=== PATIENT | male | born 1955 | race African-American/Black ===

== ENCOUNTER 2017-07-18 07:35 | Observation (INO) | payer BC ==
[2017-07-18 08:22] LABS: #Basophils 0.1 thou/uL (0.0-0.2); #Eosinphils 0.2 thou/uL (0.0-0.7); #Lymphocytes 2.3 thou/uL (1.20-3.40); #Monocytes 0.4 thou/uL (0.11-0.59); #Neutrophils 3.2 thou/uL (1.40-6.50); %Eosinophils 3.1 % (0.0-10.0); %Lymphocytes 36.5 % (21.0-51.0); %Monocytes 7.2 % (0.0-10.0); Hematocrit 48.1 % (42.0-52.0); Mean Platelet Volume 7.4 fL (7.4-10.4); Red Blood Cell (RBC) Count 4.95 mill/uL (4.70-6.10); White Blood Cell (WBC) Count 6.2 thou/uL (4.8-10.8)
--- NOTE | 2017-07-18 08:41 | RAD ---
CHEST TWO VIEW: History: Shortness of breath. Comparison: Chest one view, 01-03-16 FINDINGS: There is a nodular density in the left lung apex. Remainder of the lungs are clear. No pneumothorax or effusion. Mild spondylosis of the thoracic spine. IMPRESSION: Nodular density left lung apex. Follow up radiograph in six months or CT recommended. POS: [facility]
[2017-07-18 08:44] LABS: Anion Gap 12 mmol/L (10-20); BUN (Urea Nitrogen) 13 mg/dL (8.4-25.7); Calc. Creatinine Clearance 0 mL/min (70-130); Calcium 9.3 mg/dL (7.8-10.44); Carbon Dioxide 29 mmol/L (23-31); Chloride 100 mmol/L (98-107); Estimated GFR-MDRD Greater than 90
[2017-07-18 08:51] LABS: Troponin I Less than 0.010 ng/mL (< 0.028)
[2017-07-18] MEDS ORDERED: Ondansetron ODT 4 MG TAB SL PRN (12:25)
[2017-07-18] MEDS ORDERED: Ondansetron HCl/PF 4 MG/2 ML Vial IVP PRN ×2 (12:25→12:28)
[2017-07-18] MEDS ORDERED: Acetaminophen 325 MG TAB PO PRN ×2 (12:25→12:28)
--- NOTE | 2017-07-18 12:27 | HP ---
PRIMARY CARE PHYSICIAN: Dr. Bladimir Hughes. REASON FOR ADMISSION: Acute dyspnea with diaphoresis. HISTORY OF PRESENT ILLNESS: A 62-year-old -[place] male with a history of morbid obesity, d iabetes type 2, hypertension and dyslipidemia, who came to the emergency room for evaluation of acut e onset of dyspnea and diaphoresis. The patient reports that this morning around 6:30 when he was a pplying prescription medication to his , at that time, patient felt acute onset of shortness of breath with diaphoresis. The patient was rubbing cream and after a while, he was feeling that he wa s not able to take a deep breath. He has to struggle to take a deep breath and he felt diaphoresis. He did not have any chest pain. He did not pass out. He did not have any lower extremity edema o r calf tenderness. He did not have any cough. His blood sugar was 186 and that is why he was mis rned about and decided to come to the emergency room for evaluation. This type of thing never happe aniceto to him before and he has never smoked in his life. He was never told that he has any asthma. W hen he presented to emergency room, he was saturating normal. He was feeling normal, but he was con cerned about diaphoresis with tightness in his chest. He also felt wheezing and heard himself wheez ing when this happened. This entire episode lasted for about a few minutes and subsequently it subs ided by itself. Currently, when I saw this patient in the emergency room, he is feeling normal. REVIEW OF SYSTEMS: Please see my HPI for pertinent positives and negatives. All other review of sy stems reviewed and negative except as mentioned in the HPI. Constitutional: Weight loss or gain, ability to conduct usual activities. Skin: Rash, itching. Eyes: Double vision, pain. ENT/Mouth: Nose bleeding, neck stiffness, pain, tenderness. Cardiovascular: Palpitations, dyspnea on exertion, orthopnea. Respiratory: Shortness of breath, wheezing, cough, hemoptysis, fever or night sweats. Gastrointestinal: Poor appetite, abdominal pain, heartburn, nausea, vomiting, constipation, or diar yakelin. Genitourinary: Urgency, frequency, dysuria, nocturia. Musculoskeletal: Pain, swelling. Neurologic/Psychiatric: Anxiety, depression. Allergy/Immunologic: Skin rash, bleeding tendency. PAST MEDICAL HISTORY: Morbid obesity, diabetes type 2, chronic low back pain, hypertension, dyslipi demia, chronic venous insufficiency and benign enlargement of prostate. PAST SURGICAL HISTORY: Reviewed and negative. PAST PSYCHIATRIC HISTORY: Reviewed and negative. SOCIAL HISTORY: Patient is , lives at home with family. He drinks alcohol socially. He den ies any smoking or other illicit drug abuse. FAMILY HISTORY: No strong family history of premature coronary artery disease, stroke or cancer. D misa runs among several family members. ALLERGIES: SULFA DRUGS. CURRENT HOME MEDICATIONS: Folbic one tablet daily, aspirin 81 mg p.o. daily, Zetia 10 mg p.o. daily , Crestor 40 mg p.o. daily, glyburide 5 mg twice daily, multivitamin 1 tablet p.o. daily, losartan w ith hydrochlorothiazide 1 tablet p.o. daily and potassium gluconate 1 tablet p.o. daily. EMERGENCY ROOM COURSE: Reviewed. PHYSICAL EXAMINATION: VITAL SIGNS: Currently, blood pressure 149/96, pulse 88, respiratory rate 18, temperature 98.0, sat uration 98% on room air and weight 142 kilograms. GENERAL: Patient is currently alert and awake in no obvious acute distress. HEAD: Normocephalic and atraumatic. EYES: Pupils round and reactive to light. Extraocular muscles intact. ENT: Oropharynx within normal limits. Moist mucous membranes. No oral lesions. No pharyngeal evelio thema, no exudate. NECK: Supple. Range of motion is normal. No meningeal signs of irritation. LUNGS: Clear to auscultation without any rhonchi or rales. CARDIAC: S1 and S2 regular without any murmur. ABDOMEN: Morbid obesity limiting examination. No peritoneal sign, no guarding, no rigidity, no maico ound, no organomegaly, no mass. BACK: Unremarkable. No CVA tenderness. EXTREMITIES: Upper extremity; passive movement of all joints are normal. Lower extremity; chronic venous stasis changes, but no edema. Good peripheral pulsation. SKIN: No skin rash. HEMATOLOGICAL SYSTEM: No lymphadenopathy. PSYCHIATRIC: Normal affect. NEUROLOGIC: Nonfocal examination. The patient moves all 4 limbs. Plantar bilateral flexor. PSYCHIATRIC: Normal affect. SIGNIFICANT LABS: CBC: WBC 6.2, hemoglobin 15.7 and platelets 189. BMP: Sodium 136, potassium 4.7, chloride 100, carbon dioxide 29, BUN 13, creatinine 0.99, glucose 2 38 and calcium 9.3. BNP 11.5. CK-MB 2.5, troponin I less than 0.010. EKG based on my review reveals normal sinus rhythm within normal limits without any ischemic changes . Chest x-ray based on my review, nodular density in the left lung apex. ASSESSMENT, PLAN AND IMPRESSION: 1. Acute dyspnea with diaphoresis. At this point, we have two differentials for this condition. P julisa was applying cream to his and at that time, the patient's symptoms started. I am suspec ting that few inhalations from tube smell might have created acute bronchospasm and subsequent diaph oresis. Another possibility given his diabetes and other risk factors for coronary artery disease c ould be angina equivalent. At this point, the patient is on room air. He does not have any active wheezing or bronchospasm. We will keep this patient in the hospital for observation. His initial c ardiac enzymes are negative and cardiogram is also normal. We will do subsequent cardiac enzymes x2 and we will check lipid profile for risk stratification. We will do resting part of stress test to day and the stressed part of stress test tomorrow given his morbid obesity. We will keep him in obs ervation and monitor on telemetry floor. 2. Diabetes type 2. We will continue patient's home medication for diabetes including diabetes med ication and insulin as per sliding scale while in hospital and diabetic diet will be given. 3. Dyslipidemia. We will continue Zetia 10 mg p.o. daily and Crestor 40 mg p.o. at bedtime along w ith that we will check lipid profile tomorrow morning. 4. Hypertension. We will continue losartan with hydrochlorothiazide 50/12.5 one tablet p.o. daily and we will titrate blood pressure medication while in hospital. 5. Morbid obesity. Dietary education given, weight loss education given. Healthy lifestyle measur e discussed with the patient. 6. Deep venous thrombosis prophylaxis not needed because we are expecting discharge in 24 hours. 7. Gastrointestinal prophylaxis. Pepcid 20 mg p.o. b.i.d. 8. CODE STATUS: The patient is FULL CODE. The patient's is the surrogate decision maker. ADDENDUM: New problem is pulmonary density at the left upper lobe. This finding was discussed with the patient. This patient has no smoking history. At this point, the patient is advised to get ou tpatient CT scan for more evaluation and we will defer that part to outpatient basis with primary ca re physician. Disposition plan based on stress test results, likely within 24 hours. As this patient cannot do ex ercise treadmill stress test, we will do pharmacological stress test. Plan of care discussed with jaguar myrick patient's family member at bedside in the emergency room.
[2017-07-18 12:28] LABS: Troponin I 0.016 ng/mL (< 0.028)
[2017-07-18] MEDS ORDERED: Diabetic Tussin 200 MG/10 ML UDCUP PO PRN (12:28)
[2017-07-18] MEDS ORDERED: HYDROcodone/Acetaminophen 5/325 mg Tablet PO PRN (12:28)
[2017-07-18] MEDS ORDERED: Milk Of Magnesia 30 ML UDCUP PO PRN (12:28)
[2017-07-18] MEDS ORDERED: Eucerin (Mineral Oil/Petrolatum,White) 30 gm Jar TOP PRN (12:28)
[2017-07-18] MEDS ORDERED: Nitroglycerin 0.4 MG TAB (25 Tab Bottle) SL PRN (12:28)
[2017-07-18] MEDS ORDERED: Dextrose 5% in Water 1,000 ML IV PRN (12:28)
[2017-07-18] MEDS ORDERED: Ondansetron ODT 4 MG TAB PO PRN (12:28)
[2017-07-18] MEDS ORDERED: Senokot 8.6 MG TAB PO PRN (12:28)
[2017-07-18] MEDS ORDERED: Dextrose 50% Abboject 50 ML SYRINGE SLOW IVP PRN (12:28)
[2017-07-18] MEDS ORDERED: Mag-Al 1200 mg/1200 mg/30 ML UDCUP PO PRN (12:28)
[2017-07-18] MEDS ORDERED: Loperamide HCl 2 MG CAP PO PRN (12:28)
[2017-07-18] MEDS ORDERED: Sodium Chloride 0.65% Nasal 44 ML BOT EA NARE PRN (12:28)
[2017-07-18] MEDS ORDERED: Loratadine 10 MG TAB PO PRN (12:28)
[2017-07-18] MEDS ORDERED: Zolpidem Tartrate 5 MG TAB PO PRN (12:28)
[2017-07-18] MEDS ORDERED: HumaLOG 300 UNITS/3 ML VIAL SC PRN (12:28)
[2017-07-18 12:33] VITALS: BMI 46.1
[2017-07-18 14:53] LABS: Troponin I Less than 0.010 ng/mL (< 0.028)
[2017-07-18] MEDS: HumaLOG 300 UNITS/3 ML VIAL SC PRN (17:39)
[2017-07-18] MEDS: Famotidine 20 MG TAB PO SCH (20:35)
[2017-07-18] MEDS ORDERED: FLU VACC QS2017-18 36 mo. & older 0.5 ML SYRINGE IM ONE (21:00)
[2017-07-19] MEDS ORDERED: Prevnar 13-Val Conj/PF 0.5 ML SYRINGE IM ONE (09:00)
--- NOTE | 2017-07-19 09:22 | PDOC.PN ---
- Subjective Encounter Start Date: 07/19/17 Encounter Start Time: 09:20 Mr. Estevez says he had an episode of the nausea again this morning, but otherwise ok. - Objective Resuscitation Status: Resuscitation Status FULL:Full Resuscitation MAR Reviewed: Yes Vital Signs & Weight: Vital Signs (12 hours) Temp Pulse Resp BP Pulse Ox 07/19/17 08:00 98.6 F 96 16 07/19/17 07:42 97.8 F 100 20 129/68 97 07/19/17 04:34 98.6 F 96 16 135/74 96 Weight Weight 312 lb 9.6 oz I&O: 07/18/17 07/19/17 07/20/17 06:59 06:59 06:59 Intake Total 1045 Output Total 700 Balance 345 Result Diagrams: 07/18/17 08:10 07/18/17 08:10 Additional Labs: Accuchecks 07/19/17 07/18/17 07/18/17 04:36 21:04 17:02 POC Glucose 225 H 247 H 269 H Phys Exam - Physical Examination HEENT: PERRLA Respiratory: no wheezing, no rales, no rhonchi, clear to auscultation bilateral Cardiovascular: RRR, no significant murmur Gastrointestinal: soft, non-tender, positive bowel sounds Musculoskeletal: no edema Dx/Plan (1) Dyspnea Code(s): R06.00 - DYSPNEA, UNSPECIFIED Status: Acute (2) Obesity, morbid, BMI 40.0-49.9 Code(s): E66.01 - MORBID (SEVERE) OBESITY DUE TO EXCESS CALORIES Status: Acute (3) Diabetes mellitus, insulin dependent (IDDM), uncontrolled Code(s): E10.65 - TYPE 1 DIABETES MELLITUS WITH HYPERGLYCEMIA Status: Chronic (4) Hypertension Code(s): I10 - ESSENTIAL (PRIMARY) HYPERTENSION Status: Chronic - Plan * Dyspnea- possible anginal equivalent- patient will have the second part of his stress test today * DM- blood glucose is slightly elevated- continue SSI.
[2017-07-19] MEDS: Multivitamin W/ Minerals 1 TAB PO SCH (12:17)
[2017-07-19] MEDS: Aspirin 325 MG TAB PO SCH (12:17)
[2017-07-19] MEDS: Ezetimibe 10 MG TAB PO SCH (12:18)
[2017-07-19] MEDS: Famotidine 20 MG TAB PO SCH ×2 (12:18→21:34)
[2017-07-19] MEDS ORDERED: Regadenoson 0.4 MG/5 ML SYRINGE ONE (13:21)
--- NOTE | 2017-07-19 14:16 | NM ---
NUCLEAR MEDICINE CARDIAC STRESS TEST WITH EJECTION FRACTION. HISTORY Hypertension, diabetes, dyslipidemia. Dyspnea and diaphoresis. COMPARISON: None. TECHNIQUE: Stress and rest was performed after the intravenous administration of 30.9 and 27 mCi Technetium 99m , respectively. FINDINGS: There are some low-grade ischemic changes of the inferior wall and septum of the mid portion of the left ventricle. There is also dyskinesia of the septum and inferior wall. Ejection fraction is decreased from the comparison echocardiogram to now approximately 44%. IMPRESSION: 1. Low-grade ischemic changes of the inferior wall and septum with dyskinesia. 2. Ejection fraction 44%. POS: [facility]
[2017-07-19] MEDS: HumaLOG 300 UNITS/3 ML VIAL SC PRN (16:31)
[2017-07-19] MEDS ORDERED: Communication Order-Pharmacy FS SCH (16:45)
[2017-07-20] MEDS ORDERED: Diazepam 5 MG TAB PO SCH (00:30)
[2017-07-20] MEDS ORDERED: Sodium Chloride 0.9% 1,000 ML IV SCH ×2 (00:30→08:00)
[2017-07-20] MEDS: Aspirin 325 MG TAB PO SCH (06:03)
[2017-07-20] MEDS: Famotidine 20 MG TAB PO SCH (06:03)
[2017-07-20] MEDS: Ezetimibe 10 MG TAB PO SCH (06:03)
--- NOTE | 2017-07-20 06:03 | CON ---
DATE OF CONSULTATION: 07/19/2017 INDICATION FOR CONSULTATION: This is a 62-year-old patient with sudden onset of shortness of breath and diaphoresis. He was admitted to the hospital and underwent a stress test, which shows abnormal ities involving the inferior septal areas with ischemia and dyskinesis, ejection fraction was estima everton at 44%. HISTORY OF PRESENT ILLNESS: This is a very unfortunate gentleman has morbid obesity. He has had a long history of hypertension, hypercholesterolemia, and diabetes. He was at home and was putting so me lotion on his 's leg due to arthritis. He then added some different medications, it noticed that the fumes were irritating him. He became very short of breath and then suddenly became diaphor etic. He denied any chest pain. He took his blood sugar because he thought he might be hypoglycemi c. Unfortunately, his blood sugar was over a 100 and knew this was not the problem, so he was prese nted to the emergency room and was then admitted for further evaluation. During the follow up, he w as noted to have no acute ST segment changes. EKG was relatively unremarkable. His laboratory data also was relatively unremarkable. His cardiac enzymes are negative, but he underwent a stress test , which shows evidence of inferior septal dyskinesis and reversible ischemia. He otherwise is stabl e at this time and denies any symptoms. PAST MEDICAL HISTORY: Significant for benign prostatic hypertrophy, hypertension, hypercholesterole carl, type 2 diabetes, obesity, venous insufficiency and chronic back pain. SOCIAL HISTORY: He is . He is now retired early due to disability with chronic back pain. He has no alcohol or tobacco abuse. FAMILY HISTORY: Noncontributory for any early age of coronary artery disease. REVIEW OF SYSTEMS: Upon 12-point review of systems, he mainly complains of low back pain and he pee d he has nerve impingement. Otherwise, he has no complaints on the review of systems except what wa s noted in the history of present illness. MEDICATIONS PRIOR TO ADMISSION: Included Folbic, losartan/hydrochlorothiazide, Zetia, glyburide, Cr estor, insulin, 81 mg of aspirin and potassium 99 mg p.o. daily. At this time, he is on p.r.n. medi cations and also is taking insulin, Pepcid 20 mg b.i.d., aspirin 325 mg a day, Zetia 10 mg a day, an d losartan 50/12.5 once a day, as well as multivitamins. ALLERGIES: He is allergic to SULFA. PHYSICAL EXAMINATION: GENERAL: Reveals a middle-aged gentleman, who is morbidly obese. VITAL SIGNS: His blood pressure is 147/75, heart rate is 96 to 102, and respiratory rate is 20. He is afebrile. HEENT: Shows head to be normocephalic, atraumatic. Carotid pulses are present. I do not hear any bruits. CHEST: Clear to auscultation without rales, rhonchi or wheezing. CARDIOVASCULAR: Reveals a regular rate and rhythm with normal S1, S2. There is no S3, S4. There w ere no significant murmurs, heaves, thrills, bruits or rubs. ABDOMEN: Shows morbid obesity with positive bowel sounds. No organomegaly or masses are even palpa ble. EXTREMITIES: Showed no clubbing, cyanosis or edema. Pedal pulses are present. NEUROLOGIC: The patient appears to be fully intact without any evidence of motor dysfunction. SKIN: Warm and dry. IMAGING: His EKG shows a normal sinus rhythm with no acute changes. The stress test as noted above . IMPRESSION: 1. A morbidly obese gentleman with risk factors for coronary artery disease, who presented with mohit den onset of shortness of breath and diaphoresis with an abnormal stress test. It may be advantageo us the patient to undergo a cardiac catheterization. We will discuss this with Dr. Carroll who has s een the patient in the past and will keep patient n.p.o. for possible cardiac catheterization tomorr ow. 2. History of diabetes. This appears to be under reasonable control at home, but here the blood davidson gars have anywhere between 247 to 272 and he may need to have adjustment of his medications. 3. Hypertension. Blood pressure has remained stable. 4. Hypercholesterolemia. He will continue his present medications at this time. His LDL is 57 and is very good, it was done today. HDL is 41. 5. History of diabetic neuropathy. Given his multiple risk factors and his diabetes, he may not ex perience chest discomfort, and given the abnormal stress test, we will consider a cardiac catheteriz ation tomorrow as a definitive evaluation for possible coronary artery disease.
[2017-07-20] MEDS ORDERED: Heparin 10,000 UNITS/1 ML VIAL ONE (06:38)
[2017-07-20] MEDS ORDERED: Nitroglycerin 100MG/250ML BOT 250 ML ONE (06:38)
[2017-07-20] MEDS ORDERED: Midazolam HCl 2 mg/2 ml Vial ONE (07:23)
[2017-07-20] MEDS ORDERED: Fentanyl 100 MCG/2 ML VIAL ONE (07:24)
[2017-07-20] MEDS ORDERED: Acetaminophen/Codeine 30-300mg Tablet PO PRN (07:51)
[2017-07-20] MEDS ORDERED: traMADol HCl 50 MG TAB PO PRN (07:51)
[2017-07-20] MEDS ORDERED: Aspirin 325 MG TAB PO SCH (07:54)
[2017-07-20] MEDS ORDERED: Sodium Chloride 0.9% 200 ML IV SCH (08:00)
[2017-07-20] MEDS ORDERED: Clopidogrel Bisulfate 300 MG TAB PO SCH (08:00)
[2017-07-20] MEDS ORDERED: Carvedilol 3.125 MG TAB PO SCH (08:00)
[2017-07-20] MEDS: Multivitamin W/ Minerals 1 TAB PO SCH (08:30)
[2017-07-20] MEDS ORDERED: Clopidogrel Bisulfate 75 MG TAB PO SCH (09:00)
[2017-07-20] MEDS: HumaLOG 300 UNITS/3 ML VIAL SC PRN (12:03)
[2017-07-20 12:15] VITALS: BP 115/70; TEMP 97.6
[2017-07-20] MEDS ORDERED: Iopamidol 370 76% 100 ML VIAL ONE (13:19)
--- NOTE | 2017-07-20 13:42 | DIS ---
DATE OF DISCHARGE: 07/20/2017 DISCHARGE DISPOSITION: Home. FOLLOWUP: 1. Follow up with primary care physician, Dr. Saul Garriosn in 1 week. 2. Follow up with Cardiology, Dr. Carroll in 10 days. ALLERGIES: Patient is allergic to SULFA. DISCHARGE MEDICATIONS: 1. Aspirin 81 mg daily. 2. Plavix 75 mg daily (new medication). 3. Carvedilol 3.125 b.i.d. (new medication). 4. Sublingual nitroglycerin as needed. 5. Folic acid 1 tablet daily. 6. Zetia 10 mg at bedtime. 7. Losartan/HCTZ 50/12.5 daily. 8. Potassium gluconate 99 mg daily. 9. Crestor 40 mg at bedtime. 10. Glyburide 10 mg b.i.d. INPATIENT CONSULTANTS: Cardiology, Dr. Carroll. The patient was seen and examined on the day of discharge. Denies any new complaints. No chest екатерина n, shortness of breath, palpitations. BRIEF HOSPITAL COURSE: Patient is a 62-year-old male with morbid obesity, diabetes mellitus type 2, hypertension, and dyslipidemia who presented to the emergency room with shortness of breath along w ith diaphoresis. Please refer to the history and physical dated 07/18/2017 for further details. The patient was admitted to the hospital with a diagnosis of anginal equivalent. Serial cardiac enz ymes were normal. He underwent a stress test that showed ejection fraction 44% with low grade ische giuseppe changes of the inferior wall and septum with dyskinesia and cardiac catheterization was performe d earlier today that showed moderate to severe ostial left circumflex disease. The proximal RCA had 100% stenosis with collaterals from LAD. LAD and left main were patent. He has been cleared by Ca rdiology for discharge and a loading dose of Plavix was given earlier today. He will continue Plavi x. Carvedilol was also added to his regimen. FINAL DIAGNOSES: 1. Anginal equivalent/shortness of breath secondary to underlying coronary artery disease, medicall y managed. 2. Diabetes mellitus type 2. 3. Morbid obesity with a BMI of 46.2. 4. Hypertension. 5. Dyslipidemia. 6. Diabetic neuropathy. 7. Chronic low back pain. 8. Benign prostatic enlargement. 9. Chronic venous insufficiency. SIGNIFICANT LABORATORIES: Fasting lipid profile showed LDL of 57, cholesterol 109, triglycerides 57 , HDL of 41. Plan of care was discussed with the patient and he stated understanding.
== END 2017-07-20 15:51 | disposition home or self-care (01) ==
LOC: ERS 07:35 → 2SW 10:50
PROVIDERS: ADMIT Internal Medicine; ATTEND Internal Medicine
DX: I25.10 Atherosclerotic heart disease of native coronary artery without angina pectoris (principal); R06.02 Shortness of breath; I10 Essential (primary) hypertension; E78.5 Hyperlipidemia, unspecified; E11.40 Type 2 diabetes mellitus with diabetic neuropathy, unspecified; N40.0 Benign prostatic hyperplasia without lower urinary tract symptoms; G89.29 Other chronic pain; I87.2 Venous insufficiency (chronic) (peripheral); E66.01 Morbid (severe) obesity due to excess calories; Z68.42 Body mass index [BMI] 45.0-49.9, adult; Z88.2 Allergy status to sulfonamides; Z79.82 Long term (current) use of aspirin; Z79.899 Other long term (current) drug therapy; Z79.4 Long term (current) use of insulin
CPT/HCPCS: 36415; 36416; 71020; 78452; 80048; 80061; 82553; 83880; 84484; 85025; 90471; 90670; 90682; 93005; 93017; 93458; 93798; 96360; 96361; 99152; A4216; A9500; C1769; G0008; G0009; G0378; J1644; J2250; J2785; J3010; Q2036

== ENCOUNTER 2019-10-27 19:56 | Inpatient (IN) | payer BC, MEDICARE ==
[2019-10-27 20:44] LABS: #Basophils 0.1 thou/uL (0.0-0.2); #Eosinphils 0.2 thou/uL (0.0-0.7); #Lymphocytes 1.9 thou/uL (1.20-3.40); #Monocytes 0.8 thou/uL (0.11-0.59); #Neutrophils 5.7 thou/uL (1.40-6.50); %Basophils 0.7 % (0.0-1.0); %Eosinophils 2.3 % (0.0-10.0); %Lymphocytes 21.6 % (21.0-51.0); %Monocytes 9.3 % (0.0-10.0); %Neutrophils 66.1 % (42.0-75.0); Hemoglobin 11.8 g/dL (14.0-18.0); Mean Corpuscular HGB CONC 32.9 g/dL (32.0-36.0); Mean Corpuscular Hemoglobin 30.7 pg (27.0-31.0); Mean Corpuscular Volume 93.2 fL (78.0-98.0); Mean Platelet Volume 7.2 fL (7.4-10.4); Platelet Count 211 thou/uL (130-400); RBC Distribution Width 11.8 % (11.5-14.5); Red Blood Cell (RBC) Count 3.84 mill/uL (4.70-6.10); White Blood Cell (WBC) Count 8.7 thou/uL (4.8-10.8)
[2019-10-27 20:51] LABS: INR-International Normal Ratio 1.1; PTT 33.5 SEC (22.9-36.1); Prothrombin Time 14.4 SEC (12.0-14.7)
[2019-10-27 20:52] LABS: D-Dimer Test 0.31 *mcg/mL (0.27-0.43)
[2019-10-27 21:07] LABS: ALT (SGPT) 10 U/L (8-55); AST (SGOT) 12 U/L (5-34); Albumin 3.4 g/dL (3.4-4.8); Alkaline Phosphatase 126 U/L (40-110); Anion Gap 15 mmol/L (10-20); BUN (Urea Nitrogen) 24 mg/dL (8.4-25.7); Bilirubin, Total 0.7 mg/dL (0.2-1.2); Calc. Creatinine Clearance 0 mL/min (70-130); Carbon Dioxide 26 mmol/L (23-31); Chloride 95 mmol/L (98-107); Estimated GFR-MDRD 17; Globulin 3.6 g/dL (2.4-3.5); Glucose 220 mg/dL (80-115); Lipase 17 U/L (8-78); Potassium 3.3 mmol/L (3.5-5.1); Sodium 133 mmol/L (136-145)
--- NOTE | 2019-10-27 21:13 | RAD ---
SINGLE VIEW OF THE CHEST: Comparison: 01-03-16 History: Near syncope and chest pain. FINDINGS: Single view of the chest shows a normal sized cardiomediastinal silhouette. There is no evidence of c onsolidation, mass, or pleural effusion. The bones are unremarkable. IMPRESSION: No evidence of acute cardiopulmonary disease. POS: [facility]
[2019-10-27 22:09] LABS: Hemoglobin A1c 11.6 % (4.0-6.0)
[2019-10-27 23:50] VITALS: BMI 50.4
[2019-10-27] MEDS: Lactated Ringer's 1,000 ML IV SCH (23:52)
[2019-10-28] MEDS: Lactated Ringer's 1,000 ML IV SCH (06:04)
[2019-10-28] MEDS ORDERED: Dextrose 5% in Water 1,000 ML IV PRN (08:15)
[2019-10-28] MEDS ORDERED: Dextrose 50% Abboject 50 ML SYRINGE IVP PRN (08:15)
[2019-10-28] MEDS ORDERED: TRULICITY 0.75 MG SC SCH (08:30)
[2019-10-28 08:50] LABS: Anion Gap 13 mmol/L (10-20); BUN (Urea Nitrogen) 25 mg/dL (8.4-25.7); Calc. Creatinine Clearance 36 mL/min (70-130); Calcium 8.4 mg/dL (7.8-10.44); Carbon Dioxide 26 mmol/L (23-31); Chloride 98 mmol/L (98-107); Estimated GFR-MDRD 16; Glucose 219 mg/dL (80-115); Sodium 134 mmol/L (136-145)
[2019-10-28] MEDS: Sodium Chloride 0.9% 1,000 ML IV SCH ×3 (09:27→22:42)
[2019-10-28] MEDS: Pregabalin 75 MG CAP PO SCH ×2 (09:27→21:27)
[2019-10-28] MEDS ORDERED: Potassium Chloride 20 MEQ TAB PO SCH (09:45)
--- NOTE | 2019-10-28 10:13 | HP ---
CHIEF COMPLAINT: Dizziness, near syncope, and acute renal failure. He has also got dehydration. HISTORY OF PRESENT ILLNESS: The patient is a 64-year-old male, who was walking his dog when his vision went black and he nearly passed out. He came to the emergency room for further evaluation. There was noted to have renal function with a BUN of 24, creatinine 4.31, potassium 3.3, and sodium 133. He was given IV fluids. Denied any vomiting or diarrhea. He had been nauseated. He also noted being shortness of breath with exertion and this has been gradually worsening over several days. He is put in for further evaluation, hydration, and renal re-evaluation. Dr. Melo has been consulted for further evaluation of that. PAST MEDICAL HISTORY: The patient has type 2 diabetes, chronic low back pain, morbidly obese, hypertension, dyslipidemia, venous insufficiency, and BPH. PAST SURGICAL HISTORY: Negative. PAST PSYCHIATRIC HISTORY: Negative. SOCIAL HISTORY: He is , lives with his family. Drinks alcohol socially. Denies smoking or any other illicit drugs. FAMILY HISTORY: Positive for diabetes, otherwise negative for cancer or heart disease. The patient last hospitalized in July of 2017, where he had a heart evaluation with Dr. Carroll. His discharge diagnosis was anginal equivalent with shortness of breath. REVIEW OF SYSTEMS: GENERAL: The patient admits to fatigue, dyspnea with exertion, and weakness. HEENT: Denies drainage in ears, nose, or throat. CARDIOVASCULAR: Denies palpitations or chest pain. CHEST: Admits to shortness of breath with exertion, but denies cough. GI: Admits to nausea, but no vomiting or diarrhea. : No blood in urine or stool or dysuria. MUSCULOSKELETAL: No new painful range of motion of the joints or muscles. SKIN: No new rashes or lesions. NEUROLOGIC: Denies headaches, blurred vision, trouble with mentation. He has had his vision go black as he was felt like he is getting ready to pass out. PSYCHIATRIC: Denies depression, anxiety, or reasonable fears. PHYSICAL EXAMINATION: VITAL SIGNS: At the time of admission, vital signs; blood pressure is 138/86, pulse is 102, respirations 18, and O2 saturation 98% on room air. He weighs 341 pounds. GENERAL: Morbidly obese male, alert, oriented, and cooperative. HEENT: Normocephalic and atraumatic. Pupils are equal, round, and reactive to light. Extraocular muscles are intact. TMs, nares, and pharynx are clear. NECK: Supple. Trachea midline. CHEST: Clear to auscultation. HEART: Regular rate and rhythm without murmur. ABDOMEN: Obese, unable to appreciate organomegaly. : Deferred. EXTREMITIES: Without clubbing or cyanosis. He has 1+ edema in both lower extremities. Normal range of motion. Symmetrical muscular tone development. SKIN: No new rashes or lesions. NEUROLOGIC: Cranial nerves are intact. Sensory exam is intact. Unable to test gait and cerebral function at this time. Mental status is appropriate. LABORATORY DATA: Lab work thus far shows WBCs at 8.7, hemoglobin 11.8, and hematocrit 35.8. Sodium 133, potassium 3.3, chloride 95, CO2 of 26, BUN 24, creatinine 4.31, and glucose 220. Hemoglobin A1c 11.6. Lactic acid 2.4, repeated and down to 2. Alkaline phos 126. Other liver functions unremarkable. UA unremarkable. PT 14.4, INR 1.1, and APTT 33.5 with a D-dimer 0.31. ASSESSMENT: 1. Acute renal failure. 2. Dehydration. 3. Near syncopal episode. 4. Type 2 diabetes, poorly controlled. PLAN: Plan will be admit to Medical, hydration, serial re-evaluation of renal functions, Nephrology consultation, and cardiac evaluation. Job ID: [id number]
--- NOTE | 2019-10-28 10:54 | ULT ---
Bilateral renal ultrasound CLINICAL INDICATION: Chronic renal failure. COMPARISON: None FINDINGS: Right kidney: There is no evidence of a renal mass, renal calculus, or hydronephrosis seen. The right kidney measures 13.1 cm x 6.6 cm. Left kidney: There is no evidence of a renal mass, renal calculus, or hydronephrosis. The left kidney measures 12 cm x 6.3 cm. Urinary bladder: Normal in appearance with prevoid urinary bladder volume of 243.6 mL. IMPRESSION: No evidence of hydronephrosis.
--- NOTE | 2019-10-28 11:37 | CON ---
DATE OF CONSULTATION: HISTORY OF PRESENT ILLNESS: Mr. Estevez is a 64-year-old black male, who was admitted for near syncope with associated generalized malaise. The patient has had decreased p.o. intake, has not been feeling well. We were consulted for his acute kidney injury. He is currently on empiric volume repletion. REVIEW OF SYSTEMS: Positive for generalized malaise. Positive for dizziness/ near syncope. Occasional chest pain. No shortness of breath. No diarrhea. No constipation. No productive cough. Decreased energy level. Decreased appetite. No abdominal pain. No fever or chills. No dysuria. No urinary frequency. No productive cough. No joint pains. PAST MEDICAL HISTORY: Includes, 1. History of morbid obesity, type 2 diabetes mellitus, hypertension. 2. Hyperlipidemia, BPH, chronic back pain with radiculopathy. PAST SURGICAL HISTORY: Status post colonoscopy, status post cardiac cath. MEDICATIONS: 1. Currently on Lyrica 75 mg p.o. b.i.d. 2. Humulin R sliding scale. 3. Currently on normal saline at 150 mL/hour. 4. Trulicity 0.75 mg subcu as directed. SOCIAL HISTORY: The patient lives in [place]. . 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 Four children. Education, high school. No smoking. Alcohol, rarely. No IV drug abuse. ALLERGIES: SULFA. TRAUMA: None. IMMUNIZATIONS: Up to date. HOSPITALIZATIONS: Please see past medical history. FAMILY HISTORY: No family history of ESRD. PHYSICAL EXAMINATION: VITAL SIGNS: Blood pressure 95/62, heart rate 67, respiratory rate 20, temperature 97.6, pulse ox 94%. GENERAL: The patient is awake, supine, comfortable, not in distress, morbidly obese. SKIN: Adequate turgor. HEENT: Pinkish conjunctivae. Anicteric sclerae. NECK: No neck mass. No carotid bruits. No JVD. CHEST: No deformities. LUNGS: Clear breath sounds. HEART: Normal sinus rhythm. No murmur. No gallops. No rubs. ABDOMEN: Globular, soft, nontender. No masses. EXTREMITIES: No edema. NEUROLOGIC: Awake and oriented to 3 spheres. Moving all extremities. No tremors. No asterixis. IMAGING STUDIES: Chest x-ray of October 28, 2019, no evidence of CHF or infiltrates. LABORATORY DATA: Laboratories of October 27, 2019; white count 8.7, hemoglobin 11.8. Sodium 134, potassium 3.0, chloride 98, carbon dioxide 26, BUN 25, creatinine 4.45, glucose 219, calcium 8.4. October 27, 2019, creatinine 4.31. July 18, 2017, creatinine 0.99. ASSESSMENT AND PLAN: 1. Acute kidney injury-with the low blood pressure. Consider hemodynamically-mediated renal dysfunction. Agree with empiric volume repletion. No indication for any dialytic intervention. We will review urinalysis and urine chemistries. In addition, we will review a renal ultrasound with this patient. 2. Hypotension - currently on IV fluid volume repletion. Overall, agree with current management. We will check base metabolic again in a.m. Please note, renal ultrasound has been ordered. Hold BP Adypes. Job ID: [id number] MTDD
[2019-10-28 16:30] LABS: Bacteria/HPF None Seen HPF (None Seen); Bilirubin Negative (Negative); Blood, Urine 1+ (Negative); Clarity Clear (Clear); Glucose, Urine (Dipstick) 50 mg/dL (Negative); Leukocyte Negative Leu/uL (Negative); Nitrite Negative (Negative); Protein, Urine (Dipstick) 20 mg/dL (Neg-Trace); RBC/HPF 0-3 HPF (0-3); Squamous Epithelial 0-3 HPF (0-3); Urobilinogen Normal mg/dL (Less than 2); WBC/HPF 0-3 HPF (0-3)
[2019-10-28 16:47] LABS: Creatinine, Urine 23.38 mg/dL (63-166)
[2019-10-28] MEDS: Insulin Regular 300 UNITS/3 ML VIAL SC PRN (18:44)
[2019-10-28] MEDS: Simethicone Chewable 80 MG TAB PO PRN (22:40)
[2019-10-29] MEDS: Sodium Chloride 0.9% 1,000 ML IV SCH ×3 (05:46→17:51)
[2019-10-29] MEDS: Insulin Regular 300 UNITS/3 ML VIAL SC PRN ×2 (05:46→17:08)
[2019-10-29 06:28] LABS: Anion Gap 11 mmol/L (10-20); BUN (Urea Nitrogen) 26 mg/dL (8.4-25.7); Calc. Creatinine Clearance 33 mL/min (70-130); Carbon Dioxide 27 mmol/L (23-31); Chloride 101 mmol/L (98-107); Estimated GFR-MDRD 15; Glucose 178 mg/dL (80-115); Potassium 3.1 mmol/L (3.5-5.1); Sodium 136 mmol/L (136-145)
[2019-10-29] MEDS: Pregabalin 75 MG CAP PO SCH ×2 (08:18→20:59)
[2019-10-29] MEDS ORDERED: Insulin Glargine 30 UNITS in Pre-Filled Syringe 1 EACH SC SCH (08:45)
[2019-10-29] MEDS ORDERED: rOPINIRole HCl 1 MG TAB PO PRN (08:45)
--- NOTE | 2019-10-29 10:12 | PRG ---
DATE OF SERVICE: 10/29/2019 SUBJECTIVE: Mr. Estevez is a 64-year-old black male with a history of chronic renal failure from diabetic nephropathy and was seen by the Renal Service for his acute kidney injury. He has been started on normal saline due to the unimproved renal function. We did review the urinalysis and urinalysis was relatively benign except for a protein. The urine indices were not suggestive of prerenal azotemia. The patient denies any chest pain or shortness of breath. OBJECTIVE: VITAL SIGNS: Blood pressure 112/71, heart rate 92, respiratory rate 18, temperature 97.8, and pulse ox 96%. GENERAL: Noted to be awake, alert, supine, and obese, not in distress. SKIN: Adequate turgor. HEENT: He has a pinkish conjunctivae. Anicteric sclerae. NECK: No neck mass. No carotid bruits. No JVD. CHEST: No deformities. LUNGS: Clear breath sounds. No wheezing. No crackles. HEART: Normal sinus rhythm. No murmurs. No gallops. No rubs. ABDOMEN: Globular, soft, and nontender. No masses. EXTREMITIES: Trace edema. MEDICATIONS: Medications of October 29, 2019, was reviewed. LABORATORY DATA: Laboratories of October 27, 2019, hemoglobin 11.8. Sodium 136, potassium 3.1, chloride 101, carbon dioxide 27, BUN 26, creatinine 4.83, glucose 178, and calcium 8. ASSESSMENT AND PLAN: 1. Acute kidney injury - consider hemodynamically-mediated dysfunction. The patient is started on normal saline 150 mL/h. I will add albumin at 25 g IV q.6 hours for 4 doses. No indication for any dialytic intervention with this patient. 2. Mild hypokalemia. The patient is started on K-Dur 20 mEq b.i.d. 3. Case discussed at length with the patient regarding worsening renal dysfunction. Recheck basic metabolic in a.m. Job ID: [id number]
[2019-10-29] MEDS: Alogliptin 25 MG TAB PO SCH (10:36)
[2019-10-29] MEDS: Aspirin 81 mg Enteric Coated Tablet PO SCH (10:36)
[2019-10-29] MEDS: Potassium Chloride 20 MEQ TAB PO SCH ×2 (10:37→20:58)
[2019-10-29] MEDS: Albumin 25% 25 GM/100 ML BOT IVPB SCH ×3 (12:00→23:20)
[2019-10-29] MEDS: Rosuvastatin 20 MG TAB PO SCH (20:58)
[2019-10-29] MEDS ORDERED: Fleet Enema 133 ML BOT PR SCH (23:15)
[2019-10-29] MEDS ORDERED: Docusate 100 MG CAP PO SCH (23:15)
[2019-10-30] MEDS: Sodium Chloride 0.9% 1,000 ML IV SCH ×3 (04:24→16:11)
[2019-10-30] MEDS: Albumin 25% 25 GM/100 ML BOT IVPB SCH (05:29)
[2019-10-30 06:12] LABS: Anion Gap 11 mmol/L (10-20); BUN (Urea Nitrogen) 27 mg/dL (8.4-25.7); Calc. Creatinine Clearance 35 mL/min (70-130); Calcium 8.4 mg/dL (7.8-10.44); Carbon Dioxide 28 mmol/L (23-31); Cardiac Risk 3.3 (Less than 4.5); Chloride 105 mmol/L (98-107); Cholesterol 69 mg/dl (< 200 Desired); Estimated GFR-MDRD 16; Glucose 194 mg/dL (80-115); HDL Cholesterol 21 mg/dL (>60 Neg Risk); LDL Cholesterol, Calculated 29 mg/dL; Potassium 3.3 mmol/L (3.5-5.1); Sodium 141 mmol/L (136-145); Triglycerides 95 mg/dL (Less than 150)
[2019-10-30] MEDS: Insulin Regular 300 UNITS/3 ML VIAL SC PRN ×4 (06:45→20:49)
[2019-10-30] MEDS: Aspirin 81 mg Enteric Coated Tablet PO SCH (08:22)
[2019-10-30] MEDS: Alogliptin 25 MG TAB PO SCH ×2 (08:22→08:27)
[2019-10-30] MEDS: Pregabalin 75 MG CAP PO SCH ×2 (08:23→20:45)
[2019-10-30] MEDS: Potassium Chloride 20 MEQ TAB PO SCH ×2 (08:23→20:45)
[2019-10-30] MEDS: Docusate 100 MG CAP PO SCH ×2 (08:24→20:45)
[2019-10-30] MEDS ORDERED: Milk Of Magnesia 30 ML UDCUP PO PRN (08:47)
--- NOTE | 2019-10-30 09:57 | PRG ---
DATE OF SERVICE: 10/30/2019 SUBJECTIVE: Mr. Estevez is a 64-year-old black male, who was seen by the Renal Service for his acute kidney injury that was secondary to presumptive hemodynamically-mediated renal dysfunction. He is currently being treated empirically with IV fluids-currently he is on normal saline at 150 mL/h. No other complaints. No chest pain or shortness of breath. OBJECTIVE: VITAL SIGNS: Blood pressure is 106/72, heart rate 85, respiratory rate 20, temperature 98, pulse ox 100%. GENERAL: Noted to be awake, alert, comfortable, obese, not in distress. SKIN: Adequate turgor. HEENT: He has a pinkish conjunctivae. Anicteric sclerae. NECK: No neck mass. No carotid bruits. No JVD. CHEST: No deformities. LUNGS: Clear breath sounds. HEART: Normal sinus rhythm. No murmur. No gallops. No rubs. ABDOMEN: Globular, soft, nontender. No masses. EXTREMITIES: No edema. No deformities. MEDICATIONS: Medications of October 30, 2019 was reviewed. LABORATORY DATA: Laboratories of October 30, 2019 showed sodium 141, potassium 3.3, chloride 105, carbon dioxide 28, BUN 27, creatinine 4.57, GFR 16 mL/minute, glucose 194, calcium 8.4. Cholesterol is 69, triglyceride 95. ASSESSMENT AND PLAN: 1. Acute kidney injury - secondary to presumed hemodynamically-mediated dysfunction. Renal function is stabilizing. No indication for any dialytic intervention. Continue IV fluid at normal saline 150 mL/h. 2. I had a long discussion with the patient. He is quite anxious about his renal dysfunction. I did reassure him that everything is being done. We will continue his current IV fluid. There is at least stabilization of the renal function, it has not worsened. As a matter of fact, the GFR has improved by one point from 15 to 16 mL/minute. We will recheck basic met and CBC in a.m. Job ID: [id number]
[2019-10-30] MEDS: Rosuvastatin 20 MG TAB PO SCH (20:46)
[2019-10-31 05:43] LABS: #Eosinphils 0.6 thou/uL (0.0-0.7); #Lymphocytes 1.7 thou/uL (1.20-3.40); #Monocytes 0.6 thou/uL (0.11-0.59); #Neutrophils 5.4 thou/uL (1.40-6.50); %Basophils 0.4 % (0.0-1.0); %Eosinophils 7.1 % (0.0-10.0); %Lymphocytes 20.2 % (21.0-51.0); %Monocytes 6.8 % (0.0-10.0); %Neutrophils 65.6 % (42.0-75.0); Hemoglobin 10.9 g/dL (14.0-18.0); Mean Corpuscular HGB CONC 32.7 g/dL (32.0-36.0); Mean Corpuscular Hemoglobin 30.8 pg (27.0-31.0); Mean Corpuscular Volume 93.9 fL (78.0-98.0); Mean Platelet Volume 6.7 fL (7.4-10.4); Platelet Count 205 thou/uL (130-400); RBC Distribution Width 11.9 % (11.5-14.5); Red Blood Cell (RBC) Count 3.55 mill/uL (4.70-6.10); White Blood Cell (WBC) Count 8.3 thou/uL (4.8-10.8)
[2019-10-31] MEDS: Insulin Regular 300 UNITS/3 ML VIAL SC PRN ×3 (06:04→16:50)
[2019-10-31 06:06] LABS: Anion Gap 11 mmol/L (10-20); BUN (Urea Nitrogen) 26 mg/dL (8.4-25.7); Calc. Creatinine Clearance 40 mL/min (70-130); Calcium 8.7 mg/dL (7.8-10.44); Carbon Dioxide 28 mmol/L (23-31); Chloride 106 mmol/L (98-107); Estimated GFR-MDRD 18; Glucose 183 mg/dL (80-115); Potassium 3.1 mmol/L (3.5-5.1); Sodium 142 mmol/L (136-145)
[2019-10-31] MEDS: Aspirin 81 mg Enteric Coated Tablet PO SCH (09:05)
[2019-10-31] MEDS: Pregabalin 75 MG CAP PO SCH ×2 (09:05→20:36)
[2019-10-31] MEDS: Docusate 100 MG CAP PO SCH ×2 (09:05→20:36)
[2019-10-31] MEDS: Potassium Chloride 20 MEQ TAB PO SCH ×3 (09:05→20:36)
[2019-10-31] MEDS: Insulin Glargine 30 UNITS in Pre-Filled Syringe 1 EACH SC SCH (09:28)
--- NOTE | 2019-10-31 09:35 | PRG ---
DATE OF SERVICE: 10/31/2019 SERVICE: Renal Medicine. SUBJECTIVE: Mr. Estevez is a 64-year-old black male with known history of chronic renal failure from presumed diabetic nephropathy and was seen for his acute kidney injury. We felt that acute kidney injury was a hemodynamically-mediated dysfunction. He has received several liters of fluid-crystalloids and colloids. There is slight improvement with renal function. Creatinine has dropped down to 3.98 today. Yesterday, this was 4.57. GFR has improved from 16 to 18 mL/min. However, the patient is able to compensate by increasing his p.o. intake. No other complaints. No chest pain or shortness of breath. OBJECTIVE: VITAL SIGNS: Blood pressure 144/82, heart rate 91, respiratory rate 16, temperature 97.7, pulse ox 98% on room air. GENERAL: Awake, alert, comfortable, obese, not in distress. SKIN: Adequate turgor. HEENT: He has a pinkish conjunctivae. Anicteric sclerae. NECK: No neck mass. No carotid bruits. No JVD. CHEST: No deformities. LUNGS: Clear breath sounds. No wheezing. No crackles. HEART: Normal sinus rhythm. No murmurs. No gallops. No rubs. ABDOMEN: Globular, soft, nontender. No masses. EXTREMITIES: No edema. MEDICATIONS: Medications of October 31, 2019, were reviewed. LABORATORY DATA: Laboratories of October 31, 2019; sodium 142, potassium 3.1, chloride 106, carbon dioxide 28, BUN 26, creatinine 3.98, glucose 183, calcium 8.7. White count 8.2, hemoglobin 10.9. ASSESSMENT AND PLAN: 1. Acute kidney injury on top of his chronic renal failure with superimposed hemodynamically-mediated dysfunction. Stabilizing renal function. No indication for any dialytic intervention. Continue current management. Encourage the patient to increase his p.o. intake. 2. Borderline anemia. We will continue to observe. 3. Mild hypokalemia. Currently, on potassium supplementation. 4. We are holding off diuretics with this patient. 5. Recheck basic metabolic panel and CBC in a.m. Job ID: [id number] [facility]
[2019-10-31] MEDS: Aquaphor 10 GM TUBE TOP SCH (20:35)
[2019-10-31] MEDS: Rosuvastatin 20 MG TAB PO SCH (20:37)
[2019-11-01 05:44] LABS: #Basophils 0.1 thou/uL (0.0-0.2); #Eosinphils 0.7 thou/uL (0.0-0.7); #Monocytes 0.7 thou/uL (0.11-0.59); #Neutrophils 4.9 thou/uL (1.40-6.50); %Basophils 0.7 % (0.0-1.0); %Eosinophils 8.6 % (0.0-10.0); %Lymphocytes 23.9 % (21.0-51.0); %Monocytes 8.8 % (0.0-10.0); Hemoglobin 11.2 g/dL (14.0-18.0); Mean Corpuscular HGB CONC 32.3 g/dL (32.0-36.0); Mean Corpuscular Hemoglobin 30.7 pg (27.0-31.0); Mean Corpuscular Volume 95.2 fL (78.0-98.0); Mean Platelet Volume 7.2 fL (7.4-10.4); Platelet Count 210 thou/uL (130-400); RBC Distribution Width 12.1 % (11.5-14.5); Red Blood Cell (RBC) Count 3.66 mill/uL (4.70-6.10); White Blood Cell (WBC) Count 8.4 thou/uL (4.8-10.8)
[2019-11-01 06:07] LABS: Anion Gap 9 mmol/L (10-20); BUN (Urea Nitrogen) 21 mg/dL (8.4-25.7); Calc. Creatinine Clearance 52 mL/min (70-130); Calcium 8.4 mg/dL (7.8-10.44); Carbon Dioxide 26 mmol/L (23-31); Chloride 111 mmol/L (98-107); Estimated GFR-MDRD 25; Glucose 164 mg/dL (80-115); Sodium 142 mmol/L (136-145)
[2019-11-01] MEDS: Potassium Chloride 20 MEQ TAB PO SCH ×3 (08:38→20:15)
[2019-11-01] MEDS: Pregabalin 75 MG CAP PO SCH ×2 (08:39→20:15)
[2019-11-01] MEDS: Docusate 100 MG CAP PO SCH ×2 (08:41→20:15)
[2019-11-01] MEDS: Aspirin 81 mg Enteric Coated Tablet PO SCH (08:41)
[2019-11-01] MEDS: Insulin Glargine 30 UNITS in Pre-Filled Syringe 1 EACH SC SCH (08:43)
--- NOTE | 2019-11-01 11:13 | PRG ---
DATE OF SERVICE: 11/01/2019 SUBJECTIVE: Mr. Estevez is a 64-year-old black male, who was seen by the Renal Service for an acute kidney injury that was hemodynamically-mediated dysfunction. He has received volume repletion. Currently, an IV line was found and he is currently on normal saline 150 mL/h. He is tolerating said hydration. No complaints of chest pain or shortness of breath. OBJECTIVE: VITAL SIGNS: Blood pressure 130/79, heart rate 90, respiratory rate 18, temperature 97.7, pulse ox 97%. GENERAL: Awake, alert, obese, comfortable, not in distress. SKIN: Adequate turgor. HEENT: He has pinkish conjunctivae. Anicteric sclerae. NECK: No neck mass. No carotid bruits. No JVD. CHEST: No deformities. Lungs, clear breath sounds. HEART: Normal sinus rhythm. No murmur. No gallops. No rubs. ABDOMEN: Globular. Soft. Nontender. No masses. EXTREMITIES: No edema. MEDICATIONS: Medications of November 01, 2019, reviewed. LABORATORY DATA: Laboratories of November 01, 2019; white count 8.4, hemoglobin 11.2, sodium 142, potassium 4, chloride 111, carbon dioxide 26, BUN 21, creatinine 3.08, glucose 164, calcium 8.4. ASSESSMENT AND PLAN: Acute kidney injury-superimposed hemodynamically-mediated dysfunction, much improved creatinine. Most recent creatinine 3.08 with a GFR 25 mL/minute. Continue current management. Continue current IV hydration. No indication for any dialytic intervention. Job ID: [id number]
[2019-11-01] MEDS: Insulin Regular 300 UNITS/3 ML VIAL SC PRN (11:51)
[2019-11-01] MEDS: Aquaphor 10 GM TUBE TOP SCH (20:14)
[2019-11-01] MEDS: Rosuvastatin 20 MG TAB PO SCH (20:16)
[2019-11-02] MEDS: Simethicone Chewable 80 MG TAB PO PRN (03:12)
[2019-11-02] MEDS: Insulin Regular 300 UNITS/3 ML VIAL SC PRN ×2 (05:46→20:19)
[2019-11-02 06:07] LABS: Anion Gap 12 mmol/L (10-20); BUN (Urea Nitrogen) 19 mg/dL (8.4-25.7); Calc. Creatinine Clearance 65 mL/min (70-130); Calcium 8.1 mg/dL (7.8-10.44); Carbon Dioxide 25 mmol/L (23-31); Chloride 112 mmol/L (98-107); Estimated GFR-MDRD 32; Glucose 145 mg/dL (80-115); Potassium 4.1 mmol/L (3.5-5.1); Sodium 145 mmol/L (136-145)
[2019-11-02] MEDS: Docusate 100 MG CAP PO SCH ×2 (09:13→20:15)
[2019-11-02] MEDS: Insulin Glargine 30 UNITS in Pre-Filled Syringe 1 EACH SC SCH (09:13)
[2019-11-02] MEDS: Pregabalin 75 MG CAP PO SCH ×2 (09:14→20:15)
[2019-11-02] MEDS: Potassium Chloride 20 MEQ TAB PO SCH ×3 (09:14→20:15)
[2019-11-02] MEDS: Aspirin 81 mg Enteric Coated Tablet PO SCH (09:14)
--- NOTE | 2019-11-02 11:48 | PRG ---
DATE OF SERVICE: 11/02/2019 SUBJECTIVE: Mr. Estevez is a 64-year-old black male, who was admitted for his acute kidney injury secondary to volume depletion. Renal function slowly improving with volume repletion. No other complaints today. No chest pain or shortness of breath. OBJECTIVE: VITAL SIGNS: Blood pressure is 124/75, heart rate 90, respiratory rate 19, temperature 97.5, and pulse ox 95%. GENERAL: He is noted to be awake, alert, comfortable, not in distress. SKIN: Adequate turgor. HEENT: He has pinkish conjunctivae. Anicteric sclerae. NECK: No neck mass. No carotid bruits. No JVD. CHEST: No deformities. LUNGS: Clear breath sounds. No wheezing. No crackles. HEART: Normal sinus rhythm. No murmur. No gallops. No rubs. ABDOMEN: Globular, soft, and nontender. No masses. EXTREMITIES: No edema. No deformities. MEDICATIONS: Medications of November 02, 2019, were reviewed. LABORATORY DATA: laboratories of November 02, 2019; sodium 145, potassium 4.1, chloride 112, carbon dioxide 25, BUN 19, creatinine 2.46, glucose 145, calcium 8.1, and hemoglobin 11.2. ASSESSMENT AND PLAN: Acute kidney injury - superimposed hemodynamically-mediated renal dysfunction, much improved renal function with IV hydration. I feel that one more day of IV fluid should make his renal function approach to acceptable levels. Okay for discharge in the next 24 hours. Agree with current management. Continue IV hydration. No indication for any dialytic intervention. Case discussed at length with the patient. Job ID: [id number]
[2019-11-02] MEDS: Aquaphor 10 GM TUBE TOP SCH (20:14)
[2019-11-02] MEDS: Rosuvastatin 20 MG TAB PO SCH (20:15)
[2019-11-03 06:48] LABS: Anion Gap 10 mmol/L (10-20); BUN (Urea Nitrogen) 15 mg/dL (8.4-25.7); Calc. Creatinine Clearance 84 mL/min (70-130); Calcium 8.5 mg/dL (7.8-10.44); Carbon Dioxide 25 mmol/L (23-31); Chloride 113 mmol/L (98-107); Estimated GFR-MDRD 43; Glucose 108 mg/dL (80-115); Potassium 4.4 mmol/L (3.5-5.1); Sodium 144 mmol/L (136-145)
[2019-11-03] MEDS: Aspirin 81 mg Enteric Coated Tablet PO SCH (07:51)
[2019-11-03] MEDS: Pregabalin 75 MG CAP PO SCH (07:51)
[2019-11-03] MEDS: Potassium Chloride 20 MEQ TAB PO SCH (07:51)
[2019-11-03] MEDS: Insulin Glargine 30 UNITS in Pre-Filled Syringe 1 EACH SC SCH (07:51)
[2019-11-03] MEDS: Docusate 100 MG CAP PO SCH (07:52)
--- NOTE | 2019-11-03 11:46 | PRG ---
DATE OF SERVICE: 11/03/2019 SUBJECTIVE: Mr. Estevez is a 64-year-old black male, who was admitted for acute kidney injury secondary to volume depletion. Empiric volume repletion has been given with significant improvement of the renal function. No new complaints today. No chest pain or shortness of breath. OBJECTIVE: VITAL SIGNS: Blood pressure 127/81, heart rate 90, respiratory rate 22, temperature 98.2, and pulse ox 96%. GENERAL: Noted to be awake, alert, comfortable, and obese, not in distress. SKIN: Adequate turgor. HEENT: Pinkish conjunctivae. Anicteric sclerae. NECK: No neck mass. No carotid bruits. No JVD. CHEST: No deformities. LUNGS: Clear breath sounds. No wheezing. No crackles. HEART: Normal sinus rhythm. No murmur. No gallops. No rubs. ABDOMEN: Globular, soft, and nontender. No masses. EXTREMITIES: No edema. No deformities. MEDICATIONS: Medications of November 03, 2019, was reviewed. LABORATORY DATA: Laboratories of November 03, 2019; sodium 144, potassium 4.4, chloride 113, carbon dioxide 25, BUN 15, creatinine 1.9, glucose 108, and calcium 8.5. ASSESSMENT AND PLAN: 1. Acute kidney injury secondary to hemodynamically-mediated renal dysfunction. Much improved with volume repletion. Continue current management. The patient encouraged to increase his p.o. intake upon discharge. 2. Proteinuria. I suspect this is from underlying diabetic nephropathy. The patient was recommended to follow up at the [facility] several weeks after discharge. Agree with current management. Agree with planned discharge. Job ID: [id number]
[2019-11-03 11:52] VITALS: BP 109/71; TEMP 98
--- NOTE | 2019-11-04 22:32 | PQF ---
TANVIR BRUNO [place] MD [id number] CLINICAL DOCUMENTATION CLARIFICATION FORM: POST DISCHARGE Addendum to original discharge summary date: ____ Late entry note date: __ DATE: 11/04/2019 ATTN: Gerardo Reynaga Please exercise your independent, professional judgment in responding to the clarification form. Clinical indicators are provided on the bottom of this form for your review Please check appropriate box(s): [ x ] Hypovolemic Shock [ ] Cardiogenic Shock [ ] Anaphylactic Shock (please specify etiology) [ ] Yjydk-Enjw-ivwphch Shock (please specify etiology) [ ] Shock Unspecified [ ] Other diagnosis =- Acute Kidney Injury [ ] Unable to determine In addition, please specify: Present on Admission (POA): [ x ] Yes [ ] No [ ] Unable to determine For continuity of documentation, please document condition throughout progress notes and discharge summary. Thank You. CLINICAL INDICATORS - SIGNS / SYMPTOMS / LABS H&P p1 10/27 Dr Stephenson was walking his dog when his vision went black and he davin passed out H&P p1 10/27 Dr Stephenson Renal function with a BUN of 24, Creatinine 4.31, Potassium 3.3 Consult p1 10/28 Dr Melo Consult 10/28 Dr Melo Pt has had decreased po intake, has not been feeling well Consult p1 10/28 Dr Melo he is currently on empiric volume repletion Consult p2 10/28 Dr Melo Vital sign: BP 95/62. heart rate 67, resp 20, pulse ox 94% RISK FACTORS H&P p1 10/27 64-year-old Male H&P p1 10/27 Acute renal failure H&P p1 10/27 Dehydration H&P p2 10/27 Type 2 Diabetes, poorly controlled Consult p2 10/28 Hypotension TREATMENTS: NOV 30 IV Lactated Ringers H&P p2 10/27 Serial re-evaluation of Renal function Nephrology consult 10/28 Gerardo Reynaga Consult p2 10/28 Check base metabolic Consult p2 10/28 Hold BP meds (This form is maintained as a part of the permanent medical record) 2014 [employer], [employer]. All Rights Reserved [email or web address]
== END 2019-11-03 13:40 | disposition home or self-care (01) | DRG 682 ==
LOC: ERS 19:56 → T4-A 23:15
PROVIDERS: ADMIT Specialist; ATTEND Specialist
DX: N17.9 Acute kidney failure, unspecified (principal); R57.1 Hypovolemic shock; Z68.43 Body mass index [BMI] 50.0-59.9, adult; E66.01 Morbid (severe) obesity due to excess calories; E11.65 Type 2 diabetes mellitus with hyperglycemia; E78.5 Hyperlipidemia, unspecified; N40.0 Benign prostatic hyperplasia without lower urinary tract symptoms; G89.29 Other chronic pain; M54.10 Radiculopathy, site unspecified; E87.6 Hypokalemia; Z79.899 Other long term (current) drug therapy; Z88.2 Allergy status to sulfonamides; Z79.4 Long term (current) use of insulin
CPT/HCPCS: 36415; 36416; 71045; 76770; 80048; 80053; 80061; 81001; 82570; 83036; 83605; 83690; 83880; 84300; 84484; 84540; 85025; 85379; 85610; 85730; 93005; 93306; 94760; 96360; J1815; J7050; P9047

== ENCOUNTER 2022-11-07 06:56 | Outpatient (CLI) | payer MEDICARE | END 2022-11-07 06:57 | disposition home or self-care (01) | LOC: BICULT 06:56 | PROVIDERS: ATTEND Specialist | DX: R93.813 Abnormal radiologic findings on diagnostic imaging of testicles, bilateral (principal); N43.3 Hydrocele, unspecified | CPT/HCPCS: 76870; 93976 ==